=== PATIENT | female | born 1975 | race African-American/Black ===

== ENCOUNTER 2019-08-24 10:13 | Outpatient (CLI) | payer OTHER ==
--- NOTE | 2019-08-24 11:46 | ULT ---
ULTRASOUND ABDOMEN: HISTORY: Abdominal pain. Lesion on spleen. FINDINGS: The liver demonstrates homogeneous echotexture without focal mass or intrahepatic ductal dilatation. The patient is post cholecystectomy. The common duct measures 7 mm in diameter. The tail of the pa ncreas is not visualized. The visualized portions of the pancreas, aorta, and IVC are unremarkable. The kidneys have a normal appearance. No free fluid is seen. The spleen is not well visualized due to bowel gas and measures 7.2 cm in length. No free fluid is seen. IMPRESSION: Status post cholecystectomy. Suboptimal visualization of the spleen due to bowel gas. POS: TPC
== END 2019-08-24 10:14 | disposition home or self-care (01) ==
LOC: BICULT 10:13
PROVIDERS: ATTEND Internal Medicine
DX: D73.89 Other diseases of spleen (principal); Z90.49 Acquired absence of other specified parts of digestive tract
CPT/HCPCS: 82274; 93975

== ENCOUNTER 2019-09-30 15:01 | Outpatient (CLI) | payer OTHER ==
--- NOTE | 2019-09-30 15:52 | MMO ---
Right Breast MAMMO Unilat Diag DDI RT+GANESH. CLINICAL HISTORY: Patient is 43 years old and is seen for follow-up at short-interval from prior study. The patient has the following family history of breast cancer: maternal aunt, at age 38. The patient has no personal history of cancer. VIEWS: The views performed were: right craniocaudal with tomosynthesis; right mediolateral oblique with tomosynthesis; and right mediolateral with tomosynthesis. FILMS COMPARED: The present examination has been compared to prior imaging studies performed at [facility] on 03/09/2019, and at [facility] on 03/18/2019 and 09/30/2019. This study has been interpreted with the assistance of computer-aided detection. MAMMOGRAM FINDINGS: There are scattered fibroglandular densities. There is a stable focal asymmetry seen in the right breast. Ultrasound findings are stable. IMPRESSION: STABLE FOCAL ASYMMETRY IN THE RIGHT BREAST IS PROBABLY BENIGN. FOLLOW-UP IN 6 MONTHS IS RECOMMENDED. THE RESULTS OF THIS EXAM WERE SENT TO THE PATIENT. ACR BI-RADS Category 3 - Probably benign finding - short interval follow-up suggested. [facility] will notify the patient of the need for additional imaging services. MAMMOGRAPHY NOTE: 1. A negative mammogram report should not delay a biopsy if a dominant of clinically suspicious mass is present. 2. Approximately 10% to 15% of breast cancers are not detected by mammography. 3. Adenosis and dense breasts may obscure an underlying neoplasm. Reported by: LEVY HILL MD Electonically Signed: [id number]
== END 2019-09-30 15:02 | disposition home or self-care (01) ==
LOC: BICMAMMO 15:01
PROVIDERS: ATTEND Internal Medicine
DX: R92.2 Inconclusive mammogram (principal)
CPT/HCPCS: G0279

== ENCOUNTER 2019-10-08 08:06 | Outpatient (CLI) | payer OTHER ==
[2019-10-08] MEDS ORDERED: Iopamidol-370 76% 500 ML 1 ML ONE (10:02)
--- NOTE | 2019-10-08 10:32 | CT ---
CT ABDOMEN WITH AND WITHOUT IV CONTRAST CT PELVIS WITH IV CONTRAST: Date: 10/08/2019 HISTORY: Infarction of spleen. Patient is no longer having abdominal pain. COMPARISON: None. FINDINGS: The lung bases are clear. The liver, pancreas, adrenal glands, and kidneys are normal. The patient is post cholecystectomy. No calculi seen in the kidneys, ureters, or the urinary bladder. No hydroureteronephrosis is seen on eit her side. There is a well circumscribed nonenhancing low density lesion in the anterior superior aspect of the spleen measuring 16 x 18 x 20 mm. This has a subcapsular location. No free air or lymphadenopathy seen in the abdomen or pelvis. The small bowel loops are not abnormall y dilated. Uterus and ovaries are present. A small amount of free fluid is seen in the pelvis. There is a 15 mm nonenhancing cystic lesion in the lower anterior abdomen posterior to the linea alba , which is a nonspecific finding. No osteolytic or osteoblastic lesions are seen. IMPRESSION: Benign-appearing 2.0 cm splenic lesion. POS: OFF
== END 2019-10-08 08:07 | disposition home or self-care (01) ==
LOC: BICCT 08:06
PROVIDERS: ATTEND Surgery
DX: D73.5 Infarction of spleen (principal); D73.89 Other diseases of spleen
CPT/HCPCS: 74178; Q9967

== ENCOUNTER 2020-07-28 15:08 | Outpatient (CLI) | payer OTHER ==
--- NOTE | 2020-07-28 15:53 | ULT ---
US Breast Limited Rt: 07/28/2020 12:00 AM CLINICAL INDICATION: Focal asymmetry seen on prior mammography in the 10:00 position of the right laverne ast. COMPARISON: Ultrasound 09/30/2019, 03/18/2019 and mammograms 07/28/2020, 09/30/2019, 03/18/2019 TECHNIQUE: Multiplanar grayscale and color Doppler images were obtained of the breast. FINDINGS: There is a well-circumscribed isoechoic region that is slightly heterogeneous in appearance. This has a similar appearance of the surrounding breast parenchyma but is a separate lesion and may represent a hamartoma. IMPRESSION: BI-RADS Category 2-benign findings. Annual screening mammography is recommended.
--- NOTE | 2020-07-28 15:54 | MMO ---
Bilateral MAMMO Bilat Diag DDI+GANESH. CLINICAL HISTORY: Patient is 44 years old and is seen for diagnostic exam. The patient has the following family history of breast cancer: maternal aunt, at age 38. The patient has no personal history of cancer. VIEWS: The views performed were: bilateral craniocaudal with tomosynthesis; bilateral mediolateral oblique with tomosynthesis; and bilateral mediolateral with tomosynthesis. FILMS COMPARED: The present examination has been compared to prior imaging studies performed at [facility] on 03/18/2019, 09/30/2019 and 07/28/2020. This study has been interpreted with the assistance of computer-aided detection. MAMMOGRAM FINDINGS: There are scattered fibroglandular densities. There is a stable fat containing, lobular mass with circumscribed margins seen in the upper-outer region of the right breast. There are no suspicious masses, suspicious calcifications, or new areas of architectural distortion. IMPRESSION: THERE IS NO MAMMOGRAPHIC EVIDENCE OF MALIGNANCY. THIS ASYMMETRY MAY REPRESENT A SMALL HAMARTOMA. A ROUTINE FOLLOW-UP MAMMOGRAM IN 1 YEAR IS RECOMMENDED. THE RESULTS OF THIS EXAM WERE SENT TO THE PATIENT. ACR BI-RADS Category 2 - Benign finding MAMMOGRAPHY NOTE: 1. A negative mammogram report should not delay a biopsy if a dominant of clinically suspicious mass is present. 2. Approximately 10% to 15% of breast cancers are not detected by mammography. 3. Adenosis and dense breasts may obscure an underlying neoplasm. Reported by: WAGNRE MCKINNON MD Electonically Signed: [id number]
== END 2020-07-28 15:09 | disposition home or self-care (01) ==
LOC: BICMAMMO 15:08
PROVIDERS: ATTEND Internal Medicine
DX: R92.8 Other abnormal and inconclusive findings on diagnostic imaging of breast (principal)
CPT/HCPCS: 77066; G0279